=== PATIENT | female | born 1980 | race Caucasian/White ===

== ENCOUNTER 2017-11-07 09:55 | Inpatient (IN) | payer OTHER ==
[~2017-11-07] VITALS: Ht 163.8 cm; Wt 97.7 kg
[2017-11-07 10:10] VITALS: BP 128/80
[2017-11-07] MEDS ORDERED: OXYTOCIN 30U/ 0.9% NaCL 500ML 500 ML IV ONE (10:45)
[2017-11-07] MEDS ORDERED: D5%-LACTATED RINGERS 1,000 ML IV SCH (10:45)
[2017-11-07] MEDS ORDERED: LACTATED RINGERS 1,000 ML IV SCH ×3 (10:45→17:17)
[2017-11-07] MEDS ORDERED: FENTANYL/BUPIV./NS/PF 250 ML EPIDCONT SCH ×2 (10:45→17:17)
[2017-11-07] MEDS ORDERED: OXYTOCIN 30U/ 0.9% NaCL 500ML 500 ML IV PRN (10:45)
[2017-11-07] MEDS ORDERED: MISOPROSTOL 200 MCG TABLET ONE (10:52)
[2017-11-07] MEDS ORDERED: LIDOCAINE 1%, 20ML ONE (10:52)
[2017-11-07] MEDS ORDERED: OXYTOCIN 30U/ 0.9% NaCL 500ML 500 ML ONE ×2 (10:52→19:54)
[2017-11-07] MEDS ORDERED: TERBUTALINE 1 MG/ML, 1ML IVPush PRN (11:00)
[2017-11-07] MEDS ORDERED: FENTANYL PF 100 MCG/2ML IVPush PRN (11:00)
[2017-11-07] MEDS ORDERED: FENTANYL PF 100 MCG/2ML IV PRN (11:00)
[2017-11-07] MEDS ORDERED: LACTATED RINGERS 1,000 ML IVBOLUS PRN ×2 (11:00→17:30)
[2017-11-07 11:25] LABS: HEMATOCRIT 37.2 % (34.6-47.8); HEMOGLOBIN 12.5 g/dL (11.7-16.4)
[2017-11-07] MEDS ORDERED: FENTANYL/BUPIV./NS/PF 250 ML EPIDCONT ONE (17:18)
[2017-11-07] MEDS ORDERED: BUPIVACAINE/PF 0.25% ONE (17:18)
[2017-11-07] MEDS ORDERED: NALOXONE 0.4 MG/ML, 1ML IVPush PRN (17:30)
[2017-11-07] MEDS ORDERED: EPHEDRINE 50 MG/ML, 1ML IVPush PRN (17:30)
[2017-11-07] MEDS ORDERED: NEWBORN KIT ONE (20:03)
[2017-11-07] MEDS ORDERED: OXYTOCIN 30U/ 0.9% NaCL 500ML 500 ML IV SCH (20:49)
[2017-11-07] MEDS: OXYTOCIN 30U/ 0.9% NaCL 500ML 500 ML IV SCH (20:54)
[2017-11-07] MEDS ORDERED: MAGNESIUM HYDROXIDE 8%, 30ML UDC PO PRN (21:00)
[2017-11-07] MEDS ORDERED: ACETAMINOPHEN 325 MG TABLET PO PRN (21:00)
[2017-11-07] MEDS ORDERED: OXYcodone IR 5MG TABLET PO PRN (21:00)
[2017-11-07] MEDS ORDERED: ONDANSETRON 2MG/ML, 2ML IV PRN (21:00)
[2017-11-07] MEDS ORDERED: METHYLERGONOVINE 0.2 MG/ML IM PRN (21:00)
[2017-11-07] MEDS ORDERED: CALCIUM CARBONATE 500 MG TAB.CHEW PO PRN (21:00)
[2017-11-07] MEDS ORDERED: OXYTOCIN 10 UNITS/ML, 1ML IM PRN (21:00)
[2017-11-07] MEDS ORDERED: IBUPROFEN 800 MG TABLET PO PRN (21:00)
[2017-11-07 22:35] VITALS: BP 124/71
[2017-11-08] MEDS: OXYcodone/APAP 5/325MG TABLET PO PRN ×5 (01:11→21:04)
[2017-11-08 02:55] VITALS: BP 131/77
[2017-11-08 05:42] LABS: HEMATOCRIT 34.8 % (34.6-47.8); HEMOGLOBIN 11.7 g/dL (11.7-16.4); WHITE BLOOD COUNT 15.1 x10^3/uL (3.4-10)
[2017-11-08] MEDS: OXYTOCIN 30U/ 0.9% NaCL 500ML 500 ML IV SCH ×2 (06:49→16:49)
[2017-11-08 08:10] VITALS: BP 126/77
[2017-11-08] MEDS ORDERED: PRENATAL VIT/IRON/FA 1 EACH TABLET PO SCH (09:00)
[2017-11-08] MEDS: DOCUSATE 100 MG CAPSULE PO PRN ×2 (09:24→21:04)
[2017-11-08 12:30] VITALS: BP 134/82
[2017-11-08 16:50] VITALS: BP 130/84
[2017-11-08 20:45] VITALS: BP 133/85
[2017-11-09] MEDS: OXYTOCIN 30U/ 0.9% NaCL 500ML 500 ML IV SCH (02:49)
[2017-11-09] MEDS: OXYcodone/APAP 5/325MG TABLET PO PRN (04:47)
[2017-11-09 07:48] VITALS: BP 129/86
[2017-11-09] MEDS ORDERED: DOCU-131 PO (09:00)
[2017-11-09] MEDS ORDERED: IBUP-1223 PO (09:02)
[2017-11-09] MEDS ORDERED: OXYC-302 PO (09:03)
== END 2017-11-09 11:12 | disposition home or self-care (01) | DRG 775 ==
LOC: LDIP 09:55 → 2NW 22:17
PROVIDERS: ADMIT Obstetrics & Gynecology; ATTEND Obstetrics & Gynecology
PROC: 0W8NXZZ Division of Female Perineum, External Approach (ICD-10-PCS; principal; 2017-11-07)
PROC: 10E0XZZ Delivery of Products of Conception, External Approach (ICD-10-PCS; 2017-11-07)
PROC: 3E0P3VZ Introduction of Hormone into Female Reproductive, Percutaneous Approach (ICD-10-PCS; 2017-11-07)
PROC: 3E0R3BZ Introduction of Anesthetic Agent into Spinal Canal, Percutaneous Approach (ICD-10-PCS; 2017-11-07)
PROC: 00HU33Z Insertion of Infusion Device into Spinal Canal, Percutaneous Approach (ICD-10-PCS; 2017-11-07)
DX: O75.89 Other specified complications of labor and delivery (principal); K51.90 Ulcerative colitis, unspecified, without complications; O99.62 Diseases of the digestive system complicating childbirth; Z37.0 Single live birth; Z3A.39 39 weeks gestation of pregnancy; O09.523 Supervision of elderly multigravida, third trimester
CPT/HCPCS: 36415; 85025; 86850; 86900; J2590; J3010; J7120; J7121

== ENCOUNTER 2018-11-26 14:28 | Emergency (ER) | payer OTHER ==
[~2018-11-26] VITALS: Ht 162.6 cm; Wt 82.5 kg
[~2018-11-26 14:28] MED LIST: DOCU-131 PO; IBUP-1223 PO; OXYC-302 PO
--- NOTE | 2018-11-26 14:47 | NUR ---
PT A&OX4, RESP EVEN & UNLABORED, SPEECH CLEAR. STATES SHE WAS SENT TO ED PER PCP. SAW PCP YESTERDAY, RECTAL AREA ABSCESS, RX FOR ANTIBIOTIC. ABSCESS RUPTURED INTERNALLY YESTERDAY EVENING, PER PT. C/O PAIN TO AREA & RT GROIN, WORSENS W/ BM'S & SITTING STRAIGHT UPRIGHT. FEVER LAST NOC (101.8) TYLENOL Q 6HR (LAST DOSE 1 HR PRIMARY COUNSELOR). TRIED SALT BATH W/OUT RELIEF, HEATING PAD - MNIMAL RELIEF. LAST BM: "REALLY SMALL" ABOUT 1 HR PRIMARY COUNSELOR, "PRIOR TO THAT, YESTERDAY". DENIES BUTTS, VISUAL CHANGES, RESP DISTRESS, ABD PAIN. REPORTS SLIGHT NAUSEA. NOTED HIVES TO FACE, CHEST & BACK. RX: CIPRO - STARTED YESTERDAY - LAST DOSE THIS AM. MUPERICIN STARTED YESTERDAY - "USING THAT STUFF LIKE CRAZY" (5-6 APPLICATIONS) AFTER BATHING.
--- NOTE | 2018-11-26 15:17 | NUR ---
DR MAGALLANES BS FOR EXAM
[2018-11-26] MEDS ORDERED: CIPR500T3 PO (15:47)
[2018-11-26] MEDS ORDERED: ERGO500018 PO (15:47)
[2018-11-26] MEDS ORDERED: MULTIVITAMIN (15:47)
[2018-11-26] MEDS ORDERED: MUPI22OI2 TP (15:47)
[2018-11-26] MEDS ORDERED: ATOR40TA78 PO (15:47)
[2018-11-26 15:49] LABS: BASOPHILS # (AUTO) 0.06 x10^3/uL (0-0.1); BASOPHILS % (AUTO) 0 % (0-1); EOSINOPHILS # (AUTO) 0.34 x10^3/uL (0-0.4); EOSINOPHILS % (AUTO) 3 % (1-7); LYMPHOCYTES % (AUTO) 8 % (22-44); MD NO; MEAN CORPUSCULAR HEMOGLOBIN 27.9 pg (27.0-34.8); MEAN CORPUSCULAR HGB CONC 32.8 g/dL (32.4-35.8); MEAN CORPUSCULAR VOLUME 85.1 fL (80-100); MEAN PLATELET VOLUME 7.4 fL (7.4-10.4); MONOCYTES # (AUTO) 0.56 x10^3/uL (0.2-0.8); MONOCYTES % (AUTO) 4 % (2-9); NEUTROPHILS # (AUTO) 11.45 x10^3/uL (1.8-6.8); NEUTROPHILS % (AUTO) 85 % (42-75); PLATELET COUNT 439 x10^3/uL (130-400); RED BLOOD COUNT 4.64 x10^6/uL (3.82-5.3); RED CELL DISTRIBUTION WIDTH 15.2 % (9.6-15.2)
--- NOTE | 2018-11-26 15:50 | NUR ---
PT RESTING QUIETLY ON BED W/ SIDE RAILS UP X2, CALL LIGHT W/IN REACH. PT REPORTS CHEST HIVES ARE NOW ITCHY. WILL NOTIFY DR MAGALLANES.
[2018-11-26] MEDS ORDERED: DIPHENHYDRAMINE 50 MG CAPSULE ONE (15:53)
[2018-11-26 15:57] LABS: ALBUMIN 3.4 g/dL (3.4-5.0); ANION GAP 6 mmol/L (5-15); CALCIUM 8.4 mg/dL (8.5-10.1); CHLORIDE 109 mmol/L (98-107); CREATININE 0.81 mg/dL (0.55-1.02)
[2018-11-26] MEDS ORDERED: DIPHENHYDRAMINE 25 MG CAPSULE PO ONE (16:00)
--- NOTE | 2018-11-26 16:41 | NUR ---
RESTING QUIETLY ON BED, WATCHING TV, SIDE RAIL UP X1, SPOUSE ON OTHER SIDE, CALL LIGHT W/IN REACH. DECREASED REDNESS TO TORSO & FACE NOTED; PT REPORTS IMPROVEMENT IN ITCHINESS. RESP EVEN & UNLABORED, SPEECH CLEAR.
[2018-11-26 16:42] VITALS: BP 143/89
--- NOTE | 2018-11-26 16:47 | NUR ---
PT REPORT TO GAIL DURANT RN. PT CARE TRANSFERRED.
== END 2018-11-26 17:11 | disposition home or self-care (01) ==
LOC: ED 15:05
DX: L03.317 Cellulitis of buttock (principal); R42 Dizziness and giddiness; R50.9 Fever, unspecified
CPT/HCPCS: 36415; 80048; 82040; 83605; 84145; 85025; 99283; Q0163

== ENCOUNTER 2019-01-08 07:48 | Emergency (ER) | payer OTHER ==
[~2019-01-08] VITALS: Ht 162.6 cm; Wt 82.5 kg
[~2019-01-08 07:48] MED LIST changes: +ATOR40TA78 PO; +CIPR500T3 PO; +ERGO500018 PO; +MULTIVITAMIN; +MUPI22OI2 TP
--- NOTE | 2019-01-08 08:08 | NUR ---
PT AMBULATED TO THE BATHROOM TO PROVIDE A URINE SAMPLE.
--- NOTE | 2019-01-08 08:11 | NUR ---
PT STATED THAT SHE HAS ULCERATIVE COLITIS ANS STARTED HAVING RIGHT LOWER ABD THAT HAS NOW MOVED TO THE LEFT SIDE. C/O NAUSEA, LIGHT HEADED, FEVER OF 102. PT TOOK 1 TYLENOL AT 7:30 AM. DENIES VOMITING. LOOSE STOOL YESTERDAY, THAT IS NORMAL. PT IS ALERT, ORIENTED, WITH NAD. PT IS CONNECTED TO THE MONITOR. CALL LIGHT WITHIN REACH. PROVIDER AT BEDSIDE.
--- NOTE | 2019-01-08 08:16 | NUR ---
PT STATED THAT SHE IS NOT ALLERGIC TO SULFA, BUT SHE IS ALLERGIC TO CIPRO. CHANGES MADE TO PTS CHART.
--- NOTE | 2019-01-08 08:19 | NUR ---
PT GIVEN ICE CHIPS, OKAY PER PROVIDER. PT IS APPRECIATIVE.
[2019-01-08] MEDS ORDERED: SODIUM CHLORIDE 0.9% 1,000ML IVBOLUS ONE (08:30)
[2019-01-08] MEDS ORDERED: ONDANSETRON 2MG/ML, 2ML IVPush ONE (08:30)
[2019-01-08] MEDS ORDERED: SODIUM CHLORIDE FLUSH 10ML SYR IVF ONE (08:30)
[2019-01-08] MEDS ORDERED: ONDANSETRON 2MG/ML, 2ML ONE (08:32)
--- NOTE | 2019-01-08 08:36 | NUR ---
IV PLACED, BLOOD DRAWN, URINE SENT TO LAB, PT MEDICATED PER ORDER.
[2019-01-08 08:38] LABS: BASOPHILS # (AUTO) 0.01 x10^3/uL (0-0.1); BASOPHILS % (AUTO) 0 % (0-1); EOSINOPHILS # (AUTO) 0.01 x10^3/uL (0-0.4); EOSINOPHILS % (AUTO) 0 % (1-7); LYMPHOCYTES # (AUTO) 0.26 x10^3/uL (1-3.4); LYMPHOCYTES % (AUTO) 4 % (22-44); MD NO; MEAN CORPUSCULAR HEMOGLOBIN 28.4 pg (27.0-34.8); MEAN CORPUSCULAR HGB CONC 32.9 g/dL (32.4-35.8); MEAN CORPUSCULAR VOLUME 86.2 fL (80-100); MEAN PLATELET VOLUME 7.4 fL (7.4-10.4); MONOCYTES # (AUTO) 0.19 x10^3/uL (0.2-0.8); MONOCYTES % (AUTO) 3 % (2-9); NEUTROPHILS # (AUTO) 6.77 x10^3/uL (1.8-6.8); NEUTROPHILS % (AUTO) 93 % (42-75); PLATELET COUNT 403 x10^3/uL (130-400); RED BLOOD COUNT 4.92 x10^6/uL (3.82-5.3); RED CELL DISTRIBUTION WIDTH 15.5 % (9.6-15.2)
[2019-01-08 08:54] LABS: ALANINE AMINOTRANSFERASE 137 U/L (12-78); ALBUMIN 3.6 g/dL (3.4-5.0); ANION GAP 8 mmol/L (5-15); CALCIUM 8.7 mg/dL (8.5-10.1); CHLORIDE 108 mmol/L (98-107)
[2019-01-08 08:55] LABS: MICROSCOPIC NOT IND
[2019-01-08 08:58] LABS: CULTURE INDICATED? NO
[2019-01-08 08:58] LABS: ALKALINE PHOSPHATASE 146 U/L (45-117); BILIRUBIN,TOTAL 0.6 mg/dL (0.2-1.0); TOTAL PROTEIN 7.8 g/dL (6.4-8.2)
--- NOTE | 2019-01-08 09:09 | NUR ---
LAB AT BEDSIDE.
--- NOTE | 2019-01-08 09:13 | NUR ---
PT AMBULATED TO THE BATHROOM WITH STEADY GAIT.
--- NOTE | 2019-01-08 09:33 | NUR ---
PT IS RESTING IN BED TALKING WITH , RESPIRATIONS EQUAL AND NON LABORED. NAD. PT IS CONNECTED TO THE MONITOR. CALL LIGHT WITHIN REACH.
--- NOTE | 2019-01-08 09:37 | NUR ---
PT TAKEN TO CT.
[2019-01-08] MEDS ORDERED: OMNIPAQUE 350 MG/ML, 100ML BOTTLE ONE (09:59)
--- NOTE | 2019-01-08 11:17 | NUR ---
PT AMBULATED TO BATHROOM WITH STEADY GAIT.
[2019-01-08 11:25] VITALS: BP 130/88
--- NOTE | 2019-01-08 11:26 | NUR ---
PROVIDER AT BEDSIDE.
[2019-01-08] MEDS ORDERED: HYDROcodone/APAP 5/325 TABLET ONE (11:28)
[2019-01-08] MEDS ORDERED: HYDROcodone/APAP 5/325 TABLET PO ONE (11:30)
--- NOTE | 2019-01-08 11:49 | NUR ---
Patient given discharge instructions and they have confirmed that they understand the instructions. Patient ambulatory with steady gait.
== END 2019-01-08 11:51 | disposition home or self-care (01) ==
LOC: ED 08:41
DX: K51.319 Ulcerative (chronic) rectosigmoiditis with unspecified complications (principal)
CPT/HCPCS: 36415; 74177; 80053; 81003; 83605; 84145; 84703; 85025; 87040; 96374; 99284; J2405; J7030; Q9967